=== PATIENT | male | born 1985 | race Caucasian/White ===

== ENCOUNTER → 2019-06-30 09:07 | Outpatient (CLI) | payer OTHER, SELFPAY ==
--- NOTE | 2019-06-30 | DI.MRI.S_ITS ---
PROCEDURE: MR LUMBAR SPINE WO CON INDICATIONS: low back pain TECHNIQUE: Noncontrast sagittal T1 spin echo and T2 fast echo, sagittal STIR, axial T1 and T2 fast spin echo through the lumbar spine. In cases with scoliosis, additional coronal T2 fast spin echo may be performed. COMPARISON: None. FINDINGS: Image quality: Excellent. Alignment and Curvature: No plain films are available for comparison, for numbering purposes. Thus, for the purposes of this examination, 5 lumbar type vertebral bodies will be presumed, as denoted on the montage panel. This should be confirmed and correlated with plain films, prior to any lumbar spinal intervention.There is normal bony alignment. Bone Marrow: Marrow is of normal overall signal. No acute vertebral body compression fractures. Mild reactive signal within the endplates adjacent to the L4 L5 and L5-S1 intervertebral discs. Spinal Cord: Conus medullaris terminates at the lower L2 level. Visualized cord demonstrates normal signal and size. Paraspinous Soft Tissues: No paravertebral masses. L1-L2: Normal appearance. L2-L3: Normal appearance. L3-L4: Normal appearance. L4-L5: Mild disc desiccation. Mild diffuse disc bulge with superimposed small broad-based right posterolateral protrusion and annular tear. Mild facet and ligamentum flavum hypertrophy. Mild canal stenosis. Moderate right and mild left subarticular foraminal stenosis. L5-S1: Moderate disc height loss and desiccation. Mild diffuse disc bulge with superimposed broad-based left posterolateral protrusion. Mild bilateral facet hypertrophy. There is mild canal stenosis. Mild left greater right foraminal stenosis. Mild posterior deviation of the left S1 nerve root within the lateral recess. IMPRESSION: 1. Multilevel degenerative disc and facet disease, as well as ligamentum flavum hypertrophy and epidural lipomatosis. 2. 5 lumbar type vertebral bodies were presumed for the current report. Plain films of the lumbar spine are recommended for confirmation, prior to any lumbar spinal intervention. 3. Mild multilevel canal stenoses. 4. Multilevel foraminal stenoses, worst at L4-L5 on the right where there is moderate foraminal stenosis. 5. Mild posterior deviation of the left S1 nerve root at the L5-S1 disc space level. Recommend correlation with clinical symptoms to ascertain relevance of this finding. Dictated by: Guera Gallagher M.D. on 06/30/2019 at 10:39 Approved by: Guera Gallagher M.D. on 06/30/2019 at 10:42
== END ==
PROVIDERS: Visit Provider Orthopaedic Surgery
DX: M54.5 Low back pain (principal); M51.36 Other intervertebral disc degeneration, lumbar region; M51.37 Other intervertebral disc degeneration, lumbosacral region; M48.061 Spinal stenosis, lumbar region without neurogenic claudication; M48.07 Spinal stenosis, lumbosacral region; E88.2 Lipomatosis, not elsewhere classified
CPT/HCPCS: 72148

== ENCOUNTER → 2020-08-05 09:05 | Outpatient (CLI) | payer OTHER, SELFPAY ==
--- NOTE | 2020-08-05 | DI.ECHO.S_ITS ---
[facility] +---------+ : : [id number] : : : : [id number] : : : : Phone: [phone]+ Echocardiogram Report + + :Name: DESIREE CRAFT Study Date: 08/05/2020 Height: 75 in : :[facility] ReadingLocation: Weight: 210 lb : : Gender: Male BSA: 2.2 m2 : :: 1985 Age: 35 yrs BP: 127/85 mmHg: :Reason For Study: HEART PALPITATIONS : :Ordering Physician: MARTINA, : :VERO Performed By: Rocio Norton : :Referring: VERO MACK : + + Interpretation Summary The left ventricle is normal in size and wall thickness. Left ventricular ejection fraction is estimated to be 50 +/- 5%. In some of the apical views there appears to be basal to mid posterolateral hypokinesis. The right ventricle is at the upper limits of normal in size. The right ventricular systolic function is normal. No significant valvular pathology seen. Procedure: A two-dimensional transthoracic echocardiogram with color flow and Doppler was performed. The study quality was technically adequate. There is no prior echocardiogram noted for this patient. The patient was in sinus bradycardia with heart rates between 46-87 bpm during the exam. Left Ventricle: The left ventricle is normal in size and wall thickness. There is no thrombus. Left ventricular ejection fraction is estimated to be 50 +/- 5%. In some of the apical views there appears to be basal to mid posterior lateral hypokinesis. Diastolic parameters suggest probable normal left ventricular diastolic function and normal filling pressures. Right Ventricle: The right ventricle is at the upper limits of normal in size. The right ventricular systolic function is normal. Atria: The left atrium is mildly dilated. Right atrial size is normal. There is no Doppler evidence for an interatrial shunt. Mitral Valve: The mitral valve is normal in structure and function. There is trace mitral regurgitation. Aortic Valve: The aortic valve is trileaflet. The aortic valve opens well. There is no aortic valve stenosis. No aortic regurgitation is present. Tricuspid Valve: The tricuspid valve is normal. There is trace tricuspid regurgitation. Pulmonary artery pressures cannot be estimated because of the lack of a measurable TR jet velocity. Pulmonic Valve: The pulmonic valve leaflets are thin and pliable; valve motion is normal. There is no pulmonic valvular regurgitation. Great Vessels: The aortic root is normal size. The dimensions of the ascending aorta are normal. The IVC is dilated (diameter is greater than 2.1 cm) yet it collapses greater than 50% with a sniff. This suggests a right atrial pressure of 8 mm Hg. Pericardium/ Pleura There is no pericardial effusion. There is no pleural effusion. MMode/2D Measurements & Calculations LVIDd: 5.7 cm LVOT diam: 2.4 cm LVIDs: 4.2 cm Ao root diam: 3.3 cm FS: 27.6 % asc Aorta Diam: 3.3 cm EPSS: 0.37 cm Ao Arch Diam (Prox Trans): 2.9 cm IVSd: 0.86 cm LVPWd: 0.81 cm LV zelaya. diameter/BSA (cm/m^2): 2.6 LV sys. diameter/BSA (cm/m^2): 1.9 LA A2 area: 21.5 cm2 RA long axis: 5.5 cm LA A4 area: 22.2 cm2 RA area: 20.0 cm2 LA length (vol): 5.4 cm RA vol: 61.6 ml LA vol: 75.0 ml RA : 27.5 ml/m2 LA vol index: 33.5 ml/m2 IVC diam: 2.9 cm RVD1 (basal): 3.7 cm TAPSE: 2.7 cm Doppler Measurements & Calculations Ao V2 max: 109.9 cm/sec LVOT Max Efrain: 92.7 cm/sec Ao V2 mean: 75.4 cm/sec LV V1 max P.4 mmHg Ao max P.8 mmHg LV V1 VTI: 18.9 cm Ao mean P.6 mmHg CAMELIA(I,D): 3.3 cm2 Ao V2 VTI: 25.2 cm CAMELIA(V,D): 3.8 cm2 sev ratio: 0.75 CAMELIA indexed to BSA (cm^2/m^2): 1.5 MV E max efrain: 78.2 cm/sec PA V2 max: 83.7 cm/sec MV A max efrain: 46.0 cm/sec PA V2 mean: 58.3 cm/sec MV E/A: 1.7 PA mean P.5 mmHg Med Peak E' Efrain: 10.5 cm/sec PA pr(Accel): 20.8 mmHg E/E' med: 7.5 Lat Peak E' Efrain: 14.1 cm/sec E/E' lat: 5.5 E/e' average: 6.5 MV dec time: 0.20 sec SV(LVOT): 84.3 ml Reading Physician:05:02 PM
== END ==
PROVIDERS: PCP Family Medicine; Referring Provider Orthopaedic Surgery; Visit Provider Orthopaedic Surgery
DX: Z00.00 Encounter for general adult medical examination without abnormal findings (principal); R00.2 Palpitations
CPT/HCPCS: 93306

== ENCOUNTER → 2020-09-12 12:07 | Outpatient (CLI) | payer OTHER, SELFPAY ==
--- NOTE | 2020-09-12 12:09 | DI.MRI.S_ITS ---
PROCEDURE: MR LUMBAR SPINE WO CON INDICATIONS: Low back pain TECHNIQUE: Noncontrast sagittal T1 spin echo and T2 fast echo, sagittal STIR, axial T1 and T2 fast spin echo through the lumbar spine. In cases with scoliosis, additional coronal T2 fast spin echo may be performed. COMPARISON: [facility], MR, MR LUMBAR SPINE WO CON, 06/30/2019, 9:31. FINDINGS: Image quality: Excellent. Alignment and Curvature: There is normal bony alignment. Bone Marrow: Mild reactive endplate changes noted adjacent to the L5-S1 disc. No acute vertebral body compression fractures. Spinal Cord: Conus medullaris terminates at the L1 level. Visualized cord demonstrates normal signal and size. Paraspinous Soft Tissues: No paravertebral masses. T12-L1: Normal appearance. L1-L2: Normal appearance. L2-L3: Normal appearance. L3-L4: Normal appearance. L4-L5: Loss of disc signal. Mild, diffuse disc bulge. Mild bilateral facet hypertrophy. Mild narrowing of the central canal. Mild bilateral neural foraminal narrowing. Fissure noted in the right foraminal annulus. No neural compression. L5-S1: Loss of disc signal and slight loss of disc height. Mild, diffuse disc bulge. Mild bilateral facet hypertrophy. No central stenosis. Mild left neural foraminal narrowing. No neural compression. Fissure noted in the posterior annulus. IMPRESSION: 1. L4-L5 and L5-S1 mild degenerative disc disease. 2. L4-L5 and L5-S1 and mild facet arthropathy. 3. Mild L4-L5 central canal narrowing. 4. Mild bilateral L4-L5 neural foraminal narrowing. Mild left L5-S1 neural foraminal narrowing. 5. L4-L5 and L5-S1 disc annulus fissures. Dictated by: Remedios Barnhart MD, PhD on 09/12/2020 at 16:30 Approved by: Remedios Barnhart MD, PhD on 09/12/2020 at 16:36
== END ==
PROVIDERS: PCP Family Medicine; Referring Provider Family Medicine; Visit Provider Family Medicine
DX: M54.5 Low back pain (principal); M51.36 Other intervertebral disc degeneration, lumbar region; M51.37 Other intervertebral disc degeneration, lumbosacral region; M47.816 Spondylosis without myelopathy or radiculopathy, lumbar region; M47.817 Spondylosis without myelopathy or radiculopathy, lumbosacral region; M48.061 Spinal stenosis, lumbar region without neurogenic claudication; M48.07 Spinal stenosis, lumbosacral region
CPT/HCPCS: 72148

== ENCOUNTER 2024-01-03 17:59 | Emergency (ER) | payer OTHER, SELFPAY ==
[2024-01-03 18:14] VITALS: BP 141/72; PULSE 52; RESP 18; TEMP 36.3; O2SAT 100; BMI 26.9
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
--- NOTE | 2024-01-03 19:31 | PC.NURSE ---
Pt has taken off C Collar while waiting in waiting room.
--- NOTE | 2024-01-03 19:44 | PC.NURSE ---
Serene from CT informed me that the patient removed his c collar.
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
[2024-01-03 21:43] VITALS: BP 144/80; PULSE 53; RESP 16; O2SAT 100
== END 2024-01-03 21:50 | disposition home or self-care (01) ==
PROVIDERS: Emergency Provider Emergency Medicine; PCP Family Medicine
DX: S62.111A Displaced fracture of triquetrum [cuneiform] bone, right wrist, initial encounter for closed fracture (principal); S62.634A Displaced fracture of distal phalanx of right ring finger, initial encounter for closed fracture; V19.9XXA Pedal cyclist (driver) (passenger) injured in unspecified traffic accident, initial encounter; R11.0 Nausea
CPT/HCPCS: 29125; 70450; 72125; 73110; 73140; 99283; 99284